=== PATIENT | male | born 1945 | race Caucasian/White ===

== ENCOUNTER → 2016-04-30 | Outpatient (CLI) | payer OTHER, MEDICARE ==
[~2016-04-30] MED LIST: ASPI81TA28 PO; CYAN500T13 PO; FERR325T5 PO; FINA5TAB PO; LISI-725 PO; MAGNEVIST IV PRN; MISCCAP80 PO; OXYC-57 PO; OXYSR10 PO
--- NOTE | 2016-04-30 09:39 | DIAGNOSTIC IMAGING REPORT ---
MRI ABDOMEN COMBO CLINICAL HISTORY: Upper abdominal pain and chronic indigestion. TECHNIQUE: Imaging was performed prior to and following IV contrast injection. ((20 cc intravenous Magnevist) COMPARISON STUDY: No previous studies for comparison. FINDINGS: Imaging was performed in the coronal and axial planes. No hepatic masses are visualized. The gallbladder was poorly visualized. The common buttock measures 5 mm. Spleen is normal in size. No splenic masses are visualized. The portal hepatic veins appear patent. There is no evidence of abdominal aortic aneurysm. Bile duct No pancreatic masses are visualized. There is no pancreatic ductal dilatation. No adrenal masses are visualized. There is a 3.5 cm upper pole left renal cyst. IMPRESSION: 1. 3.5 cm upper pole left renal cyst 2. No acute intra-abdominal findings. 3. Nondiagnostic visualization of the gallbladder. If there is concern over gallbladder disease, ultrasound would be recommended in follow-up Electronically signed by: Hector Cortez M.D. 04/30/2016 9:37 AM Dictated Date/Time: 04/30/2016 9:29 AM
== END | disposition home or self-care (01) ==
LOC: C.MRI 08:33
PROVIDERS: ATTEND Internal Medicine Gastroenterology
DX: R10.10 Upper abdominal pain, unspecified (principal); N28.1 Cyst of kidney, acquired

== ENCOUNTER → 2016-05-25 | Outpatient (CLI) | payer OTHER, MEDICARE ==
[~2016-05-25] MED LIST changes: -MAGNEVIST IV PRN
--- NOTE | 2016-05-25 08:30 | DIAGNOSTIC IMAGING REPORT ---
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 TECHNIQUE: Doppler ultrasound COMPARISON STUDY: Abdominal MRI 04/30/2016 FINDINGS: Findings suggesting unremarkable velocity characteristics of the celiac artery artery and arterial complex. Moderate increase in velocity of the superior mesenteric artery suggesting a mild degree of narrowing. Splenic artery appears to be unremarkable. Antegrade flow is present. Waveforms are unremarkable. IMPRESSION: 1. 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 2. Normal arterial evaluation of the celiac complex. 3. No evidence for a high-grade/or critical stenosis. Electronically signed by: Kevin Tariq M.D. 05/25/2016 8:28 AM Dictated Date/Time: 05/25/2016 8:26 AM
== END | disposition home or self-care (01) ==
LOC: C.ULTR 07:42
PROVIDERS: ATTEND Internal Medicine Gastroenterology
DX: R14.1 Gas pain (principal)

== ENCOUNTER 2017-04-08 14:34 | Emergency (ER) | payer OTHER, MEDICARE ==
[~2017-04-08] VITALS: Ht 177.8 cm; Wt 80.0 kg
[2017-04-08 14:35] VITALS: BP 132/77; TEMP 36.4; Ht 177.8 cm; Wt 80.0 kg
[2017-04-08] MEDS ORDERED: BYS/5 PO (15:06)
[2017-04-08] MEDS ORDERED: CHOL2000 PO (15:06)
[2017-04-08] MEDS ORDERED: ASPI325T45 PO (15:06)
--- NOTE | 2017-04-08 15:24 | EMERGENCY ROOM VISIT NOTE ---
ED Visit Note First contact with patient: 15:04 I have seen and examined this patient with Carley Chowdhury and generally agree with the treatment plan as discussed. Current/Historical Medications Scheduled Aspirin (Aspirin), 325 MG PO BID Cholecalciferol (Vitamin D3), 1 CAP PO DAILY Cyanocobalamin (Vitamin B12 500MCG), 500 MCG PO QAM Finasteride (Proscar), 5 MG PO QAM Lisinopril (Zestril), 20 MG PO QAM Nebivolol Hcl (Bystolic), 5 MG PO DAILY Probiotic Product (Probiotic), 1 TAB PO QAM Allergies Coded Allergies: Ciprofloxacin (Verified Allergy, Severe, HIVES, 04/08/17) Vital Signs Date Time Temp Pulse Resp B/P (MAP) Pulse Ox O2 Delivery O2 Flow Rate FiO2 04/08/17 14:35 36.4 62 18 132/77 97 Room Air Departure Information Referrals No Doctor, Assigned (PCP) Patient Instructions My [facility]
--- NOTE | 2017-04-08 15:33 | EMERGENCY ROOM VISIT NOTE ---
History First contact with patient: 15:04 Chief Complaint: LEG PAIN,LEG INJURY Stated Complaint: LEG CAST History of Present Illness The patient is a 71 year old male who presents to the Emergency Room with complaints of left leg pain. The patient reports that he had ankle surgery and [facility] 11 days ago. He had a cast placed 3-4 days ago. He states he has had gradually worsening pain in the ankle since the cast was put on. He called his surgeon who recommended that he come to have the cast bivalved. The patient denies any numbness or tingling. He denies any swelling of the foot or toes. He denies any pain in the calf. Review of Systems A complete 10 point review of systems was reviewed with the patient with pertinent positives and negatives as per history of present illness. All else were negative. Social History Smoking Status: Never Smoker Current/Historical Medications Scheduled Aspirin (Aspirin), 325 MG PO BID Cholecalciferol (Vitamin D3), 1 CAP PO DAILY Cyanocobalamin (Vitamin B12 500MCG), 500 MCG PO QAM Finasteride (Proscar), 5 MG PO QAM Lisinopril (Zestril), 20 MG PO QAM Nebivolol Hcl (Bystolic), 5 MG PO DAILY Probiotic Product (Probiotic), 1 TAB PO QAM Physical Exam Vital Signs Date Time Temp Pulse Resp B/P (MAP) Pulse Ox O2 Delivery O2 Flow Rate FiO2 04/08/17 14:35 36.4 62 18 132/77 97 Room Air Physical Exam VITALS: Vitals are noted on the nurse's note and reviewed by myself. Vital signs stable. GENERAL: This is a 71-year-old male, in no acute distress, nondiaphoretic, well- developed well-nourished. MUSCULOSKELETAL: There is a short leg cast in place on the left leg. Removal of the cast reveals a well-healing surgical incision to the anterior ankle as well as 2 smaller incisions proximal to this on the anterior lower leg. There are no signs of infection. Dorsalis pedis pulses 2+. Compartments are soft. Patient is able to wiggle all toes without difficulty. NEURO: Patient was alert and oriented to person place and time. Normal sensation to light and sharp touch. Medical Decision & Procedures Medical Decision Differential diagnosis includes compartment syndrome, DVT, infection, among others. The patient was evaluated as above. The cast was bivalved and the area was inspected. There is no evidence of postoperative infection. Exam is not consistent with DVT. There is nothing to suggest compartment syndrome. The cast was rewrapped with an Chapito bandage. The patient has close follow-up with his surgeon. He was instructed to return here for any signs of compartment syndrome, including increasing pain, numbness, change in sensation or any other new/concerning symptoms. He verbalized understanding and was discharged home in good condition. The patient was independently evaluated by Dr. Baker, ED attending physician , who agreed with my assessment and treatment plan. Medication Reconcilliation Current Medication List: was personally reviewed by me Blood Pressure Screening Patient's blood pressure: Normal blood pressure Impression Primary Impression: Cast discomfort Departure Information Dispostion Home / Self-Care Condition GOOD Referrals No Doctor, Assigned (PCP) Patient Instructions My [facility] Additional Instructions Follow-up with your orthopedic surgeon as scheduled. Return to the emergency department with worsening pain, numbness, tingling of the toes or any other new/concerning symptoms.
[2017-04-08 15:37] VITALS: PULSE 59; O2SAT 95
== END 2017-04-08 15:37 | disposition home or self-care (01) ==
LOC: C.EDB 14:35 → C.EDD 15:37
DX: Z46.89 Encounter for fitting and adjustment of other specified devices (principal); Z79.82 Long term (current) use of aspirin

== ENCOUNTER → 2017-08-17 | Day surgery (SDC) | payer OTHER, MEDICARE ==
[2017-08-10 09:48] VITALS: BMI 25.0
[~2017-08-17] VITALS: Ht 177.8 cm; Wt 80.9 kg
[~2017-08-17] MED LIST changes: -ASPI81TA28 PO; +CHOL1000 PO; -FERR325T5 PO; +LIDOCAINE HCL 2% 2 ML VIAL (20MG/ML) ONE; +METO-452 PO; +NEBI10TA2 PO; -OXYC-57 PO; -OXYSR10 PO; +PROPOFOL IV EMULSION 10 MG/ML 20 ML VIAL IV ONE; +RANI150T3 PO
[2017-08-17 09:04] VITALS: TEMP 36.5
[2017-08-17 09:05] VITALS: Ht 177.8 cm; Wt 80.9 kg
--- NOTE | 2017-08-17 09:33 | Endo History and Physical ---
History & Physical Date of Service: Aug 17, 2017. Chief Complaint: CHRONIC EPIGASTRIC PAIN Referring Physician: DR OBI JUAREZ History of Present Illness Epigastric pain Past Medical History Atrial Fibrillation, Male Genitourinary Prob. Past Surgical History Hx Cardiac Surgery: Yes (HEART CATH/NO STENTS, CARDIOVERSION) Hx Internal Defibrillator: No Hx Pacemaker: No Hx Abdominal Surgery: Yes (KIM) Hx of Implantable Prosthesis: No Hx Post-Op Nausea and Vomiting: No Hx Cancer Surgery: No Hx Thoracic Surgery: No Hx Orthopedic: Yes (LEFT SHOULDER SURGERY, RT ANKLE SURGERY) Hx Urinary Tract Surgery: No Family History None Social History Smoking Status: Never Smoker Hx Substance Use: No Hx Alcohol Use: Yes (RARELY) Allergies Coded Allergies: Ciprofloxacin (Verified Allergy, Severe, HIVES, 08/10/17) Esomeprazole (Verified Allergy, Unknown, RASH, 08/10/17) Current Medications Reported Home Medications Medications Dose Route/Sig Max Daily Dose Days Date Category Bystolic (Nebivolol Hcl) 10 Mg Tab 1 Tab PO DAILY 90 08/17/17 Reported Vitamin D3 (Cholecalciferol) 1,000 Unit Tab 1 Tab PO QAM 08/10/17 Reported Probiotic (Probiotic Product) 1 Cap Cap 1 Tab PO QAM 01/10/15 Reported Vitamin B12 500MCG (Cyanocobalamin) 500 Mcg Tab 500 Mcg PO QAM 01/10/15 Reported Proscar (Finasteride) 5 Mg Tab 5 Mg PO QAM 01/10/15 Reported Zestril (Lisinopril) 20 Mg Tab 20 Mg PO QAM 01/10/15 Reported Vital Signs Weight (Kilograms): 80.91 Height (Feet): 5 Height (Inches): 10 Date Time Temp Pulse Resp B/P (MAP) Pulse Ox O2 Delivery O2 Flow Rate FiO2 08/17/17 09:04 36.5 48 18 116/68 (84) 96 Room Air Physical Exam General Appearance: no apparent distress Respiratory/Chest: Auscultation: breath sounds normal Cardiovascular: Heart Auscultation: RRR Abdomen: Inspection & Palpation: soft Assessment and Plan [facility] - EGD
[2017-08-17 10:37] VITALS: BP 96/58; PULSE 46; O2SAT 97
--- NOTE | 2017-08-17 10:37 | Anesthesiology Progress Note ---
Anesthesia Post Op Note Date & Time Aug 17, 2017 at 10:37 Vital Signs Pain Intensity: 0 Vital Signs Past 12 Hours Date Time Temp Pulse Resp B/P (MAP) Pulse Ox O2 Delivery O2 Flow Rate FiO2 08/17/17 10:22 49 20 105/63 (77) 96 Room Air 08/17/17 10:06 54 18 95/57 (70) 95 Room Air 08/17/17 09:04 36.5 48 18 116/68 (84) 96 Room Air Notes Mental Status: alert / awake / arousable, participated in evaluation Pt Amnestic to Procedure: Yes Nausea / Vomiting: adequately controlled Pain: adequately controlled Airway Patency, RR, SpO2: stable & adequate BP & HR: stable & adequate Hydration State: stable & adequate Anesthetic Complications: no major complications apparent
--- NOTE | 2017-08-17 11:21 | Discharge Instructions ---
Endoscopy Patient Instructions Date / Procedure(s) Performed Aug 17, 2017. EGD Allergy Information Coded Allergies: Ciprofloxacin (Verified Allergy, Severe, HIVES, 08/10/17) Esomeprazole (Verified Allergy, Unknown, RASH, 08/10/17) Discharge Date / Findings Aug 17, 2017. Unremarkable exam. Biopsies done throughout. Provider Instructions Activity Restrictions - No exercising or heavy lifting for 24 hours. - Do not drink alcohol the day of the procedure. - Do not drive a car or operate machinery until the day after the procedure. - Do not make any important decisions or sign important papers in 24 hours after the procedure. Following Day: - Return to full activity which may include returning to work/school. Diet Start your diet with liquids and light foods (jello, soup, juice, toast). Then eat your usual diet if not nauseated. Treatment For Common After Affects For mild abdominal pain, bloating, or excessive gas: - Rest - Eat lightly - Lie on right side Follow-Up Information Follow-up with DR OBI JUAREZ as scheduled Anesthesia Information What You Should Know You have had a procedure that required some medicine to reduce anxiety and discomfort. This treatment is called moderate sedation. After receiving the treatment, you may be sleepy, but you will be able to breathe on your own. The effects of the treatment may last for several hours. Follow these instructions along with Activity/Diet recommendations noted above: * Do NOT do anything where dizziness or clumsiness would be dangerous. * Rest quietly at home today, then you can be up and about tomorrow. * Have a responsible person stay with you the rest of today. * You may have had an I.V. today. If so, you may take the dressing off later today. Recommendations Call your doctor if: * Trouble breathing * Continuous vomiting for more than 24 hours * Temperature above 101 degrees * Severe abdominal pain or bloating * Pain not relieved by pain medicine ordered * There is increased drainage or redness from any incision * A large amount of rectal bleeding greater than 2-3 tablespoons. (If you had a polyp/s removed or have hemorrhoids, a small amount of blood - from the rectum is to be expected.) * You have any unanswered questions or concerns. IN THE EVENT OF A SERIOUS EMERGENCY, GO TO THE NEAREST EMERGENCY ROOM Your discharge instructions were prepared by provider Nba Carballo. Patient Instructions Signature Page Matt Young Patient (or Guardian) Signature/Date: I have read and understand the instructions given to me by my caregivers. Caregiver/RN/Doctor Signature/Date: The above-named patient and/or guardian has received patient instructions on this date. + Original Patient Signature Page (only) stays with chart. Please make copy for patient.
--- NOTE | 2017-08-18 11:33 | GI REPORT ---
Patient Name: Matt Young Procedure Date: 08/17/2017 9:34 AM Date of : 1945 Admit Type: Outpatient Age: 72 Gender: Male Attending MD: Nba Thornton MD Procedure: Upper GI endoscopy Providers: Nba Thornton MD Referring MD: Mo Philippe Indications: Abdominal pain Medicines: See the Anesthesia note for documentation of the administered medications Complications: No immediate complications. Estimated Blood Loss: Estimated blood loss: none. Procedure: Pre-Anesthesia Assessment: - ASA Grade Assessment: III - A patient with severe systemic disease. - After reviewing the risks and benefits, the patient was deemed in satisfactory condition to undergo the procedure. After obtaining informed consent, the endoscope was passed under direct vision. Throughout the procedure, the patient's blood pressure, pulse, and oxygen saturations were monitored continuously. The scope was introduced through the mouth, and advanced to the second part of duodenum. The upper GI endoscopy was accomplished without difficulty. The patient tolerated the procedure well. Findings: A mild Schatzki ring (acquired) was found at the gastroesophageal junction. This was fractured with a biopsy forceps. The exam of the esophagus was otherwise normal. Biopsies were taken with a cold forceps for histology. The entire examined stomach was normal. Biopsies were taken with a cold forceps for histology. The examined duodenum was normal. Ampulla was visualized and was normal and draining bile. Biopsies were taken with a cold forceps for histology. Of note, pt had maximal gastric insufflation and had no tympanyb. Impression: - Mild Schatzki ring. - Normal stomach. Biopsied. - Normal examined duodenum. Biopsied. Recommendation: - Discharge patient to home. Latasha Samuels MD 08/17/2017 11:19:58 AM This report has been signed electronically. Note Initiated On: 08/17/2017 9:34 AM Number of Addenda: 1 I attest to the content of the Intraoperative Record and orders documented therein, exceptions below Addendum Number: 1 Addendum Date: 08/17/2017 11:20:12 AM Correction to above: There was no ectopy with gastric insufflation. Latasha Samuels MD 08/17/2017 11:20:26 AM This report has been signed electronically. {[id number]}
== END | disposition home or self-care (01) ==
LOC: C.GI 08:17
PROVIDERS: ATTEND Internal Medicine Gastroenterology
DX: K29.50 Unspecified chronic gastritis without bleeding (principal); K22.2 Esophageal obstruction; I10 Essential (primary) hypertension; G47.33 Obstructive sleep apnea (adult) (pediatric); Z88.1 Allergy status to other antibiotic agents